=== PATIENT | female | born 1985 | race Caucasian/White ===

== ENCOUNTER 2020-02-04 08:58 | Outpatient (CLI) | payer BC, SELFPAY ==
--- NOTE | ~2020-02-04 | XR_ITS ---
XR hand BI arthritis min 3V DATE: 02/04/2020 09:17 INDICATION: Osteoarthritis TECHNIQUE: 4 views of each hand COMPARISON: None FINDINGS: No fracture or dislocation, periosteal reaction or bone destruction, erosive change or carrie drocalcinosis. IMPRESSION: Negative Reviewed, dictated and finalized at location [facility]. IMPRESSION: Negative
--- NOTE | ~2020-02-04 | XR_ITS ---
XR sacroiliac joints min 3V DATE: 02/04/2020 09:17 INDICATION: Sacroiliac pain TECHNIQUE: AP and bilateral oblique views COMPARISON: None FINDINGS: No fracture or dislocation, erosive change or ankylosis of the sacroiliac joints. IMPRESSION: Negative Reviewed, dictated and finalized at [facility]. Reviewed, dictated and finalized at location [facility]. IMPRESSION: Negative
== END 2020-02-04 08:59 | disposition home or self-care (01) ==
PROVIDERS: PCP Family Medicine; Visit Provider Internal Medicine
DX: M19.90 Unspecified osteoarthritis, unspecified site (principal)
CPT/HCPCS: 72202; 73130